=== PATIENT | female | born 1970 | race Hispanic/Latino ===

== ENCOUNTER → 2020-01-27 10:23 | Outpatient (CLI) | payer OTHER, SELFPAY ==
[2020-01-27 11:43] LABS: Add Manual Diff / Slide Review NO; Basophils Absolute Auto 100 /uL (0-100); Basophils Percent Auto 1.4 % (0-2); Eosinophils Absolute Auto 100 /uL (0-450); Eosinophils Percent Auto 1.2 % (2-4); Hematocrit 40.3 % (36-46); Hemoglobin 13.1 g/dL (12.0-16.0); Lymphocytes Absolute Auto 1900 /uL (1100-4500); Mean Corpuscular HGB Conc 32.6 % (30-36); Mean Corpuscular Hemoglobin 28.7 PG (26-34); Monocytes Absolute Auto 500 /uL (0-900); Monocytes Percent Auto 10.1 % (3-14); Neutrophils Absolute Auto 2600 /uL (1500-7000); Neutrophils Percent Auto 51.3 % (50-75); Platelet Count 252 X10^3/uL (150-400); Red Blood Cell Count 4.58 X10^6/uL (4.0-5.2); Red Cell Distribution Width 14.5 % (11.6-14.8); White Blood Cell Count 5.1 X10^3/uL (4.5-11.0)
[2020-01-27 11:51] LABS: Alanine Aminotransferase 14 IU/L (<35); Albumin 4.6 g/dL (3.5-5.0); Albumin Globulin Ratio 1.5 (1.0-2.8); Alkaline Phosphatase 60 U/L (38-126); Aspartate Aminotransferase 24 IU/L (14-36); BUN Creatinine Ratio 13.8 (6-22); Bilirubin Total 0.6 mg/dL (0.2-1.3); Blood Urea Nitrogen 9 mg/dL (7-17); Calcium 9.7 mg/dL (8.4-10.2); Carbon Dioxide 27 mmol/L (22-32); Chloride 104 mmol/L (98-107); Cholesterol 160 mg/dL (140-199); Estimated Glomerular Filt Rate > 60.0 mL/min (>60); Glucose 89 mg/dL (70-100); HDL Cholesterol 83 mg/dL (40-60); HEMOLYSIS < 15 (0-50); LDL Cholesterol Calculated 62 mg/dL (<100); Potassium 4.5 mmol/L (3.4-5.1); Sodium 138 mmol/L (137-145); Total Protein 7.6 g/dL (6.3-8.2); Triglycerides 74 mg/dL (35-150)
[2020-01-27 12:23] LABS: Thyroid Stimulating Hormone 0.076 uIU/mL (0.47-4.68)
== END ==
PROVIDERS: Family Provider Family Medicine; PCP Family Medicine; Referring Provider Family Medicine; Visit Provider Family Medicine
DX: Z00.00 Encounter for general adult medical examination without abnormal findings (principal); E03.9 Hypothyroidism, unspecified
CPT/HCPCS: 36415; 80053; 80061; 84443; 85025

== ENCOUNTER → 2020-06-06 12:33 | Outpatient (CLI) | payer OTHER, SELFPAY ==
--- NOTE | 2020-06-06 | DI.US.S_ITS ---
ULTRASOUND OF RIGHT BREAST: 06/06/2020 CLINICAL: Palpable right breast lump by physician. Comparison is made to exams dated: 06/06/2020 mammogram - [facility], 01/24/2015 aspiration, and 03/22/2014 mammogram - [facility]. Color flow ultrasound of the right breast was performed. Fry scale images of the real-time examination were reviewed. There is a benign 1.4 cm x 1.1 cm x 1.3 cm oval cyst in the right breast at 12 o'clock anterior depth. This oval cyst is anechoic with a well-defined boundary and posterior acoustic enhancement. This correlates as palpated and with mammography findings. IMPRESSION: BENIGN There is no sonographic evidence of malignancy. The 1.4 cm x 1.1 cm x 1.3 cm oval cyst in the right breast is benign. The patient may elect to have the cyst aspirated if desired for symptomatic relief. A 1 year screening mammogram is recommended. This exam was interpreted at Station ID: [id number]. Electronically Signed By: Christiano sterling/[email or web address]:06/06/2020 14:07:27 letter sent: Clinical Evaluation Ultrasound BI-RADS: 2 Benign
--- NOTE | 2020-06-06 | DI.MG.S_ITS ---
BILATERAL DIGITAL DIAGNOSTIC MAMMOGRAM 3D/2D: 06/06/2020 CLINICAL: Right breast lump. Comparison is made to exams dated: 01/14/2015 mammogram, 03/22/2014 mammogram, and 12/09/2010 mammogram - [facility]. The tissue of both breasts is heterogeneously dense. This may lower the sensitivity of mammography. There is a 1.5 cm oval equal density mass with an obscured and circumscribed margin in the right breast at 12 o'clock anterior depth. This correlates as palpated. No other significant masses, calcifications, or other findings are seen in either breast. IMPRESSION: INCOMPLETE: NEEDS ADDITIONAL IMAGING EVALUATION The 1.5 cm oval equal density mass in the right breast is indeterminate. An ultrasound is recommended. Targeted ultrasound is recommended for further evaluation, which will be performed immediately following this exam. This exam was interpreted at Station ID: [id number]. NOTE: For mammograms, a report in lay terms will be sent to the patient. Approximately 15% of breast malignancies will not be visualized mammographically. In the management of a palpable breast mass, a negative mammogram must not discourage biopsy of a clinically suspicious lesion. Electronically Signed By: Christiano sterling/[email or web address]:06/06/2020 14:02:53 ACR BI-RADS Category 0: Incomplete [id number]
== END ==
PROVIDERS: Family Provider Family Medicine; PCP Family Medicine; Referring Provider Family Medicine; Visit Provider Family Medicine
DX: R92.8 Other abnormal and inconclusive findings on diagnostic imaging of breast (principal); N60.01 Solitary cyst of right breast
CPT/HCPCS: 76642; 77066; G0279

== ENCOUNTER → 2023-09-15 13:19 | Outpatient (CLI) | payer OTHER, BC, SELFPAY | PROVIDERS: PCP Family Medicine; Visit Provider Nurse Practitioner Family | DX: J02.9 Acute pharyngitis, unspecified (principal) | CPT/HCPCS: 87070 ==

== ENCOUNTER → 2024-01-22 07:59 | Outpatient (CLI) | payer OTHER, BC, SELFPAY ==
--- NOTE | 2024-01-22 | DI.MG.S_ITS ---
BILATERAL DIGITAL SCREENING MAMMOGRAM 3D/2D WITH CAD: 01/22/2024 CLINICAL: Routine screening. Comparison is made to exams dated: 06/06/2020 mammogram - [facility] and 03/22/2014 mammogram - [facility]. The breasts are heterogeneously dense, which may obscure small masses (category c / 51-75% glandular tissue). Current study was also evaluated with a Computer Aided Detection (CAD) system. No significant masses, calcifications, or other findings are seen in either breast. There has been no significant interval change. IMPRESSION: NEGATIVE There is no mammographic evidence of malignancy. A 1 year screening mammogram is recommended. Based on the Tyrer Cuzick model (a risk assessment model) the patient's lifetime risk is 10.2% and her 10 year risk is 2.9%. According to the ACR, ACS, and NCCN guidelines, an annual breast MRI exam along with mammogram is recommended if the patient's lifetime risk is 20% or greater. This exam was interpreted at Station ID: [id number]. NOTE: For mammograms, a report in lay terms will be sent to the patient. Approximately 15% of breast malignancies will not be visualized mammographically. In the management of a palpable breast mass, a negative mammogram must not discourage biopsy of a clinically suspicious lesion. Electronically Signed By: Blue [email or web address]:01/27/2024 15:56:58 letter sent: Normal Exam ACR BI-RADS Category 1: Negative
== END ==
LOC: MAMMO 07:59
PROVIDERS: PCP Family Medicine; Referring Provider Family Medicine; Visit Provider Family Medicine
DX: Z12.31 Encounter for screening mammogram for malignant neoplasm of breast (principal); R92.333 Mammographic heterogeneous density, bilateral breasts
CPT/HCPCS: 77063; 77067

== ENCOUNTER → 2024-08-16 17:11 | Outpatient (CLI) | payer OTHER, BC, SELFPAY ==
[2024-08-16 18:24] LABS: Influenza A - CEPHEID Flu A NEGATIVE (NEGATIVE); Influenza B - CEPHEID Flu B NEGATIVE (NEGATIVE); Respiratory Syncytial Virus Negative (Negative)
[2024-08-16 18:25] LABS: COVID-19 CEPHEID 4-PLEX PCR Negative (Negative)
== END ==
PROVIDERS: PCP Family Medicine; Visit Provider Nurse Practitioner Family
DX: J02.9 Acute pharyngitis, unspecified (principal); R05.1 Acute cough
CPT/HCPCS: 0241U; 87070